=== PATIENT | male | born 1950 | race Caucasian/White ===

== ENCOUNTER 2017-02-23 17:12 | Emergency (ER) | payer OTHER, MEDICARE ==
[2017-02-23 17:21] VITALS: BP 131/85; PULSE 74; RESP 18; TEMP 98.2; O2SAT 95
--- NOTE | 2017-02-23 17:53 | EDPHY ---
H & P HPI/ROS: CHIEF COMPLAINT: Cough, sinus congestion History by patient HISTORY OF PRESENT ILLNESS: 60-year-old man with no significant past medical history presents complaining of 48 hr of cough which is dry, some sinus congestion, frontal headache, the throat, generalized fatigue and body aches. Patient states that his thigh high fever at home earlier today and he had to lay in bed all day today. He took ibuprofen about an hour prior to arrival. He has had no nausea, vomiting or diarrhea. There is no known ill contacts however he did arrive by airplane from [place] 9 days ago. He did not get a flu shot this year. REVIEW OF SYSTEMS: As in HPI, and all other systems reviewed and are negative Smoking Status: Never smoked Physical Exam: General Appearance: Alert, nontoxic-appearing. Head: normocephalic, atraumatic Eyes: Pupils equal and round, reactive to light, no pallor or injection. Mouth: Mucous membranes moist. Neck: No cervical nodes, no submandibular nodes Respiratory: Normal, effort, lungs are clear to auscultation. No wheezes, rales or rhonchi. Cardiovascular: Regular rate and rhythm. S1, S2, no murmurs, gallops or rubs appreciated Gastrointestinal: Abdomen is soft and nontender, no masses, bowel sounds normal. Back: No CVA tenderness, no bony tenderness Neurological: Awake, alert and oriented x 3, no pronator drift, normal gait, no pronator drift Skin: Warm and dry, no rashes. Musculoskeletal: No deformities or tenderness. Extremities: full range of motion, no edema, DP2+ bilat Psychiatric: Patient has normal affect, there is no agitation. Constitutional: Initial Vital Signs Temperature (C) 36.8 C 02/23/17 17:19 Heart Rate 74 02/23/17 17:19 Respiratory Rate 18 02/23/17 17:19 Blood Pressure 131/85 H 02/23/17 17:19 O2 Sat (%) 95 02/23/17 17:19 O2 Delivery Mode Room Air Allergies/Adverse Reactions: No Known Allergies Allergy (Unverified 02/25/16 13:04) Home Medications: Medication Instructions Recorded Oseltamivir Phosphate [Tamiflu 75 75 mg PO BID #10 cap 02/23/17 mg (*)] MDM/Departure - MDM ED Course/Re-evaluation: 66-year-old man presents with cough, fever at home and fatigue for less than 48 hr. Patient is nontoxic-appearing. I was suspicious of influenza and rapid flu was done which was positive for influenza A. Patient will be started on Tamiflu is discharged home in stable condition. We discussed home care and return precautions. - Depart Disposition: Home, Routine, Self-Care Clinical Impression: Influenza A Condition: Fair Instructions: Influenza (ED) Additional Instructions: You were seen by Dr. Hannah Potter. Rest and drink plenty of fluids. Use a humidifier in the room where you sleep. Try hot drinks with honey. Take ibuprofen 400-600mg 4 times daily and Tylenol 500-1000mg every 4-6 hours as needed for fever and/or pain. Take Tamiflu as prescribed. Return for any worsening or new concerns. Prescriptions: Oseltamivir Phosphate [Tamiflu 75 mg (*)] 75 mg PO BID #10 cap
== END 2017-02-23 18:04 | disposition home or self-care (01) ==
LOC: CED 17:12
DX: J10.1 Influenza due to other identified influenza virus with other respiratory manifestations (principal)
CPT/HCPCS: 87400-PO